=== PATIENT | male | born 1990 | race Caucasian/White ===

== ENCOUNTER 2017-10-26 00:13 | Emergency (ER) | payer OTHER ==
[~2017-10-26] VITALS: Ht 188 cm; Wt 81.7 kg
[2017-10-26] MEDS ORDERED: LUNESTA3 MG PO (00:47)
== END 2017-10-26 01:09 | disposition home or self-care (01) ==
LOC: ED 00:13
DX: G25.5 Other chorea (principal); Z79.899 Other long term (current) drug therapy
CPT/HCPCS: 99282